=== PATIENT | female | born 1950 | race Asian ===

== ENCOUNTER → 2021-01-08 11:03 | Outpatient (CLI) | payer MEDICARE, OTHER, SELFPAY ==
[2021-01-08 13:09] LABS: COVID19 -Nasal RAPID Negative (Negative)
== END ==
PROVIDERS: Family Provider Internal Medicine; PCP Internal Medicine; Visit Provider Physician Assistant
DX: Z01.812 Encounter for preprocedural laboratory examination (principal); Z20.822 Contact with and (suspected) exposure to COVID-19
CPT/HCPCS: 87635; C9803

== ENCOUNTER 2021-01-09 06:49 | Day surgery (SDC) | payer MEDICARE, OTHER, SELFPAY ==
[2021-01-09] MEDS: PROPARACAINE 0.5% OPHTH SOL 2 DROPS EYE-OP (07:16)
[2021-01-09] MEDS: CATARACT EYE COMPOUND (10 DROPS/SYRINGE) 3 DROPS EYE-OP (07:17)
[2021-01-09 07:18] VITALS: BP 153/93; PULSE 75; RESP 16; TEMP 36.7; O2SAT 99; BMI 35.3
--- NOTE | 2021-01-09 08:28 | P.OP_ITS ---
Operative Date/Time/Diagnoses Pre-op diagnosis: Nuclear cataract right eye Procedure & Clinicians Procedure: Cataract Surgery Same procedure as scheduled: Yes Surgeon: Levon Tate Anesthesia Type: MAC +/- and Sedation Operative Notes Procedure in detail: Patient brought to the operating suite. Tetracaine drops placed in the right eye. Marking instrument was used to les the vertical and horizontal meridians. Patient was prepped and draped in sterile manner. Wire lid speculum was placed in the eye. Marking instrument was used to les the 15 degree meridian. Betadine drops were placed on the eye. This was irrigated. Lidocaine jelly was placed on the eye. A paracentesis port was created with a side-port blade. 0.1 mL 1% preservative free lidocaine was injected into the anterior chamber. The anterior chamber was deepened with viscoelastic. 2.6 mm keratome was used to create a temporal clear corneal incision. Cystotome and Utrata forceps were used to create continuous tear capsulorrhexis. Balanced salt solution was used to hydro dissect the nucleus. The phacoemulsification handpiece was inserted and the nucleus was removed using the stop and chop technique. The irrigation aspiration handpiece was inserted and the remaining cortex was removed. Anterior chamber was deepened with viscoelastic. An Urias [id number] intraocular lens with a power of 22.0 was injected into the capsular bag. Irrigation aspiration handpiece was inserted and the remaining viscoelastic was removed. The lens was rotated to the 15 degree meridian. Incision was hydrated with balanced salt solution and found to be leak free with pressure with Weck- Lavinia sponges. 0.1 mL Vigamox injected anterior chamber. 0.3 mL Kenalog 10 mg was injected subconjunctivally. Lid speculum was removed. The patient left the operating room in excellent condition. Complications: none Post-operative Condition: stable Disposition: same day surgery
--- NOTE | 2021-01-09 08:28 | PM.PREOP ---
Pre-operative Note Interval Note History & Physical reviewed/Exam performed by Physician: Yes Changes to H&P: No
[2021-01-09] MEDS: CHONDROIDTIN/SOD HYALURONATE 1.05 ML SYRINGE INTRAOCULA (08:49)
[2021-01-09] MEDS: LIDOCAINE 2% (GLYDO) 6 ML GEL TOP (08:49)
[2021-01-09] MEDS: TETRACAINE 0.5% OPHTH DROPS 4 ML 2 DROPS EYE-OP (08:50)
[2021-01-09] MEDS: PHENYLEPHRINE/LIDOCAINE VIAL (OR) 0.2 ML EYE-OP (08:50)
[2021-01-09] MEDS: MOXIFLOXACIN INJ 4 MG/0.8 ML VIAL 0.5 MG EYE-OP (08:50)
[2021-01-09] MEDS: BALANCED SALT IRRIG SOLN NO.2 500 ML, EPINEPHrine 1 MG IRR (08:51)
[2021-01-09] MEDS: TRIAMCINOLONE 50 MG/5 ML VIAL INJ (08:51)
[2021-01-09 09:10] VITALS: BP 149/98; PULSE 73; RESP 16; TEMP 36.5; O2SAT 100
== END 2021-01-09 09:20 | disposition home or self-care (01) ==
PROVIDERS: Family Provider Internal Medicine; PCP Family Medicine; Referring Provider Ophthalmology; Visit Provider Ophthalmology
PROC: (CPT 66984; principal; 2021-01-09 08:45)
DX: H25.11 Age-related nuclear cataract, right eye (principal); I10 Essential (primary) hypertension; E78.5 Hyperlipidemia, unspecified; Z86.73 Personal history of transient ischemic attack (TIA), and cerebral infarction without residual deficits
CPT/HCPCS: 66984; J0171; J2250; J3301; V2787

== ENCOUNTER → 2022-10-01 07:57 | Outpatient (CLI) | payer MEDICARE, OTHER, SELFPAY ==
--- NOTE | 2022-10-01 | DI.ECHO.S_ITS ---
[facility]---------[facility] +---------+ : : [address] [place] [address] : : : : [id number] : : : : Phone: [phone]+ Echocardiogram Report + + :Name: LOPEZ ENGEL Study Date: 10/01/2022 Height: 64 in : :[facility] ReadingLocation: Weight: 200 lb : : Gender: Female BSA: 2.0 m2 : :: 1950 Age: 71 yrs BP: 164/111 mmHg: :Reason For Study: SHORTNESS OF BREATH : :Ordering Physician: TANYA, : :KAELA Lawrence Performed By: Reny Benjamin : :Referring: KAELA DWYER : + + Interpretation Summary The ejection fraction is estimated to be 50-55%. Diastolic function could not be accurately assessed due to atrial fibrillation. The right ventricle is mildly dilated. The right ventricular systolic function is normal. There is marked biatrial enlargement. There is moderate mitral regurgitation. There is moderate to severe tricuspid regurgitation. The ascending aorta is mildly enlarged, 3.8 cm. Compared to the prior study dated 08/22/2014, the ejection fraction has decreased and the mitral and tricuspid regurgitation have worsened. Procedure: A two-dimensional transthoracic echocardiogram with color flow and Doppler was performed. The study quality was technically adequate. Comparison is made with the echocardiogram of 08/22/2014. The patient was in atrial fibrillation with heart rates between 71-100 bpm during the exam. Left Ventricle: The left ventricle is normal in size and wall thickness. The ejection fraction is estimated to be 50-55%. Diastolic function could not be accurately assessed due to atrial fibrillation. Right Ventricle: The right ventricle is mildly dilated. The right ventricular systolic function is normal. Atria: There is marked biatrial enlargement. There is no Doppler evidence for an interatrial shunt. Mitral Valve: The mitral valve leaflets appear mildly thickened, but open well. There is mild mitral annular calcification. There is moderate mitral regurgitation. Aortic Valve: The aortic valve is slightly calcified. The aortic valve is trileaflet. The aortic valve opens well. There is no aortic valve stenosis. No aortic regurgitation is present. Tricuspid Valve: The tricuspid valve leaflets are thin and pliable. There is moderate to severe tricuspid regurgitation. Pulmonic Valve: The pulmonic valve is not well visualized. There is no pulmonic valvular regurgitation. Great Vessels: The aortic root is normal size. The ascending aorta is mildly enlarged. The IVC is dilated (diameter is greater than 2.1 cm) yet it collapses greater than 50% with a sniff. This suggests a right atrial pressure of 8 mm Hg. Pericardium/ Pleura There is no pericardial effusion. There is no pleural effusion. MMode/2D Measurements & Calculations LVIDd: 4.9 cm LVOT diam: 2.3 cm LVIDs: 3.3 cm Ao root diam: 3.2 cm FS: 32.2 % asc Aorta Diam: 3.8 cm IVSd: 0.79 cm Ao Arch Diam (Prox Trans): 2.8 cm LVPWd: 0.93 cm LV keith. diameter/BSA (cm/m^2): 2.5 LV sys. diameter/BSA (cm/m^2): 1.7 LA A2 area: 50.3 cm2 RA long axis: 8.3 cm LA A4 area: 49.5 cm2 RA area: 48.8 cm2 LA length (vol): 8.7 cm RA vol: 242.5 ml LA vol: 243.2 ml RA : 124.0 ml/m2 LA vol index: 124.4 ml/m2 IVC diam: 2.1 cm RVD1 (basal): 4.5 cm RVD2 (mid): 3.3 cm TAPSE: 2.0 cm Doppler Measurements & Calculations Ao V2 max: 115.8 cm/sec LVOT Max Vinicio: 64.6 cm/sec Ao V2 mean: 82.9 cm/sec LV V1 max P.7 mmHg Ao max P.4 mmHg LV V1 VTI: 12.3 cm Ao mean P.0 mmHg NO(I,D): 2.1 cm2 Ao V2 VTI: 23.7 cm NO(V,D): 2.3 cm2 sev ratio: 0.52 NO indexed to BSA (cm^2/m^2): 1.1 MV E max vinicio: 97.2 cm/sec TR max vinicio: 331.3 cm/sec MV A max vinicio: 1.1 cm/sec TR max P.9 mmHg MV E/A: 87.9 PA pr(Accel): 55.0 mmHg Med Peak E' Vinicio: 9.4 cm/sec E/E' med: 10.4 Lat Peak E' Vinicio: 14.6 cm/sec E/E' lat: 6.7 E/e' average: 8.5 MV dec time: 0.18 sec MVA(VTI): 3.8 cm2 MV V2 mean: 81.9 cm/sec SV(LVOT): 50.2 ml MV mean P.0 mmHg MV V2 VTI: 13.1 cm Reading Physician:01:24 PM
--- NOTE | 2022-10-02 01:37 | DI.NM.S_ITS ---
DATE OF SERVICE: 10/01/2022 PROCEDURE: Vasodilators stress and rest myocardial perfusion imaging with gating to assess ejection fraction and regional wall motion. ORDERING PROVIDER: Kaela Dwyer M.D. INDICATIONS: The patient is a 71-year-old female with atrial fibrillation, history of stroke and exertional dyspnea. CARDIAC STRESS: Per protocol, 0.4 mg of regadenoson was infused with a normal hemodynamic response. She developed a mild headache and dyspnea but no angina with stress. Her resting ECG showed atrial fibrillation with occasional PVCs at 106 bpm. With stress, there was slight accentuation of resting ST-segment abnormalities but no significant ST-segment shifts or other arrhythmias. Per protocol, 25.2 millicuries of technetium-99m Myoview was injected and she was imaged 20 minutes later using a gated SPECT acquisition protocol. Earlier in the day while at rest, she had been injected with 11.9 millicuries of technetium-99m Myoview and was imaged 20 minutes later, again using a quantitated gated SPECT protocol. FINDINGS: 1. Raw data. There is marginal image quality because of breast attenuation and the patient was imaged with her right arm down because of mobility issues. She was unable to lie prone because of physical disability. The lung/heart ratio is normal at 0.28 with a normal TID ratio of 0.78. 2. Quantitated gated SPECT: Post-stress ejection fraction is 68% without any focal wall motion abnormality. The resting ejection fraction is 73% with a normal end-diastolic volume of 84 mL. The right ventricle appears to have slightly increased tracer uptake and is possibly mildly enlarged, which can be an indication of a right ventricular overload condition. 3. Myocardial perfusion imaging: Post-stress supine images show reduced tracer activity throughout the entire base of the heart, extending slightly into the proximal to mid anterior wall in a pattern consistent with breast attenuation artifact but there are no prone images to assess for this. There are no other perfusion defects. The resting images show an identical perfusion pattern without any areas of improvement. IMPRESSION: 1. Probable normal myocardial perfusion study. 2. Subtle fixed defect at the base of the heart extending into the proximal to mid anterior wall that most likely reflects breast attenuation artifact although the patient was unable to lie prone to assess for this. Given the absence of any wall motion abnormality in this area, previous infarction is unlikely and there is no evidence for any myocardial ischemia. 3. Normal left ventricular systolic function without any focal wall motion abnormality. The right ventricle is noted to be borderline enlarged with slightly increased tracer activity which can be a sign of a right ventricular overload condition but clinical correlation is recommended. 4. No angina or ECG evidence of ischemia with pharmacologic vasodilator stress. She was in atrial fibrillation but had no other arrhythmias except for rare isolated PVCs. Marilyn Baron - WM/angelita/jane doc#: [id number]/job#: [id number] dd: 10/01/2022 17:15:00 dt: 10/02/2022 00:16:00 DICTATING MD/COPIES TO: Mani Land MD; Kaela Dwyer M.D. COPIES MNE: GAURAV;
== END ==
PROVIDERS: Family Provider Internal Medicine; PCP Family Medicine; Referring Provider Internal Medicine Cardiovascular Disease; Visit Provider Internal Medicine Cardiovascular Disease
DX: R06.02 Shortness of breath (principal); I08.1 Rheumatic disorders of both mitral and tricuspid valves; R06.00 Dyspnea, unspecified; I77.89 Other specified disorders of arteries and arterioles; I48.91 Unspecified atrial fibrillation; Z86.73 Personal history of transient ischemic attack (TIA), and cerebral infarction without residual deficits
CPT/HCPCS: 78452; 93017; 93306; A9502; J2785

== ENCOUNTER → 2024-11-02 12:40 | Outpatient (CLI) | payer MEDICARE, OTHER, SELFPAY ==
--- NOTE | 2024-11-02 12:41 | DI.ECHO.S_ITS ---
[facility]---------+ [facility] : : [address] : [place] [address] : : [id number] : : Phone: [phone] Echocardiogram Report + + :Name: LOPEZ ENGEL Study Date: 11/02/2024 Height: 64 in : :[facility] ReadingLocation: Weight: 200 lb : : Gender: Female BSA: 2.0 m2 : :: 1950 Age: 73 yrs BP: 132/73 mmHg: :Reason For Study: MITRAL VALVE INSUFFICIENCY : :Ordering Physician: TANYA, : :KAELA Lawrence Performed By: Reny Benjamin : :Referring: KAELA DWYER : + + Interpretation Summary The ejection fraction is estimated to be 45-50%. Diastolic function could not be accurately assessed due to atrial fibrillation. The right ventricle is moderately dilated. Right ventricular systolic function is mildly reduced. There is marked biatrial enlargement. There is moderate mitral regurgitation. There is moderate to severe tricuspid regurgitation. The right ventricular systolic pressure is estimated to be at least 45 mmHg based on an estimated right atrial pressure of 8 mm Hg however suspect that this is an underestimation due to the severity of TR. The ascending aorta is mildly enlarged. Compared to the prior study 10/01/2022, the biventricular systolic function has decreased and the tricuspid regurgitation has worsened. Procedure: A two-dimensional transthoracic echocardiogram with color flow and Doppler was performed. The study quality was technically adequate. Comparison is made with the echocardiogram of 10/01/2022. The patient was in atrial fibrillation with heart rates between 57-82 bpm during the exam. Left Ventricle: The left ventricle is normal in size and wall thickness. The ejection fraction is estimated to be 45-50%. Diastolic function could not be accurately assessed due to atrial fibrillation. Right Ventricle: The right ventricle is moderately dilated. Right ventricular systolic function is mildly reduced. Atria: There is marked biatrial enlargement. There is no Doppler evidence for an interatrial shunt. Mitral Valve: The mitral valve leaflets appear moderately thickened, but open well. There is mild mitral annular calcification. There is moderate mitral regurgitation. Aortic Valve: The aortic valve is trileaflet. The aortic valve opens well. There is no aortic valve stenosis. No aortic regurgitation is present. Tricuspid Valve: The tricuspid valve leaflets are thin and pliable. There is moderate to severe tricuspid regurgitation. The right ventricular systolic pressure is estimated to be at least 45 mmHg based on an estimated right atrial pressure of 8 mm Hg. Pulmonic Valve: The pulmonic valve is not well visualized. There is mild pulmonic regurgitation. Great Vessels: The aortic root is normal size. The ascending aorta is mildly enlarged. The IVC is dilated (diameter is greater than 2.1 cm) yet it collapses greater than 50% with a sniff. This suggests a right atrial pressure of 8 mm Hg. Pericardium/ Pleura There is no pericardial effusion. There is no pleural effusion. MMode/2D Measurements & Calculations LVIDd: 4.3 cm LVOT diam: 2.1 cm LVIDs: 2.7 cm Ao root diam: 3.1 cm FS: 38.4 % asc Aorta Diam: 3.9 cm IVSd: 0.87 cm Ao Arch Diam (Prox Trans): 3.0 cm LVPWd: 0.96 cm LV keith. diameter/BSA (cm/m^2): 2.2 LV sys. diameter/BSA (cm/m^2): 1.4 LA A2 area: 41.7 cm2 RA long axis: 9.3 cm LA A4 area: 49.5 cm2 RA area: 57.2 cm2 LA length (vol): 8.9 cm RA vol: 300.2 ml LA vol: 196.3 ml RA : 153.5 ml/m2 LA vol index: 100.4 ml/m2 IVC diam: 2.0 cm RVD1 (basal): 4.2 cm RVD2 (mid): 3.2 cm TAPSE: 2.6 cm Doppler Measurements & Calculations Ao V2 max: 116.4 cm/sec LVOT Max Vinicio: 78.3 cm/sec Ao V2 mean: 82.1 cm/sec LV V1 max P.5 mmHg Ao max P.1 mmHg LV V1 VTI: 15.0 cm Ao mean P.0 mmHg NO(I,D): 2.3 cm2 Ao V2 VTI: 21.5 cm NO(V,D): 2.2 cm2 sev ratio: 0.70 NO indexed to BSA (cm^2/m^2): 1.2 MV E max vinicio: 82.1 cm/sec TR max vinicio: 303.1 cm/sec Med Peak E' Vinicio: 8.5 cm/sec TR max P.7 mmHg E/E' med: 9.6 PA V2 max: 69.0 cm/sec Lat Peak E' Vinicio: 12.7 cm/sec PA V2 mean: 50.2 cm/sec E/E' lat: 6.4 PA mean P.1 mmHg E/e' average: 8.0 PA pr(Accel): 45.6 mmHg MV dec time: 0.14 sec SV(LVOT): 49.8 ml Reading Physician:04:59 PM
== END ==
PROVIDERS: Family Provider Internal Medicine; PCP Nurse Practitioner Family; Referring Provider Internal Medicine Cardiovascular Disease; Visit Provider Internal Medicine Cardiovascular Disease
DX: I08.1 Rheumatic disorders of both mitral and tricuspid valves (principal); I48.91 Unspecified atrial fibrillation; I77.810 Thoracic aortic ectasia
CPT/HCPCS: 93306